=== PATIENT | male | born 1950 | race Caucasian/White ===

== ENCOUNTER → 2023-05-22 06:33 | Outpatient (REF) | payer MEDICARE, OTHER, SELFPAY ==
[2023-05-22 09:25] LABS: Hematocrit 38.3 % (39.0-52.0); Hemoglobin 12.1 g/dL (13.0-18.0); Mean Corp Hgb Conc. 31.6 g/dL (33.0-37.0); Mean Corpuscular Hgb 20.4 pg (27.0-31.0); Mean Corpuscular Volume 64.5 fL (80.0-94.0); Platelet Count 153 10^3/uL (130-400); Red Blood Cell Count 5.94 10^6/uL (4.70-6.10); Red Cell Dist. Width 17.8 % (11.5-14.5); White Blood Cell Count 8.4 10^3/uL (4.8-10.8)
[2023-05-22 09:59] LABS: Blood Urea Nitrogen 20 mg/dl (9-20); Calcium 8.7 mg/dl (8.4-10.2); Carbon Dioxide 27 mmol/L (22-30); Chloride 103 mmol/L (98-107); Glucose 117 mg/dl (70-99); Potassium 4.3 mmol/L (3.5-5.1); Sodium 139 mmol/L (135-145); eGFR > 60.00
== END ==
LOC: SDSPAT 06:33
PROVIDERS: ATTENDING PHYSICIAN Surgery; FAMILY PHYSICIAN Family Medicine
DX: Z01.818 Encounter for other preprocedural examination (principal)
CPT/HCPCS: 36415; 80048; 85027; 93005

== ENCOUNTER 2023-06-23 08:46 | Day surgery (SDC) | payer MEDICARE, OTHER, SELFPAY ==
[2023-05-22 10:59] VITALS: BMI 43.9
[2023-06-23] VITALS (19 sets, daily range): BP systolic 134–179; BP diastolic 48–90; BMI 38.3; BMI 40.9
--- NOTE | 2023-06-23 07:19 | HP.FOC2 ---
Focused History & Physical
Chief Complaint
HPI:
Chief Complaint: Left inguinal hernia
HPI / Indication for Planned Procedure: Patient is a 72-year-old male previously known to myself status post incisional hernia repair in 2019. He has had a left inguinal hernia which had been followed expectantly. Over the past year or so it has
slightly enlarged in size and he now has an awareness of the hernia being present with a fullness in the left inguinal scrotal area. Patient presents today for scheduled operative correction.
Relevant Past Medical History: Other (Bundle branch block, thalassemia, depression, type 2 diabetes, hypertension, PTSD, obesity, Rodríguez's esophagus, hypercholesterolemia, ROHITH)
Relevant Social History: Negative and ETOH (Daily)
Relevant Family History: Negative
Relevant Past Surgical History: Positive for (Laparoscopic right colon resection, open recurrent ventral hernia repair, RAL repair recurrent incisional hernia with mesh+TAR)
Review of Systems
Review of Pertinent Systems: All Systems Negative
Medication
See Medication form for detailed medications: Yes
Medication List (including Herbals & OTC):
alprazolam 1 mg tablet 1 mg PO HSPRN PRN anxiety 10/20/18
sertraline 100 mg tablet 100 mg PO DAILY 10/20/18
simvastatin 20 mg tablet 20 mg PO DAILY 10/20/18
tamsulosin 0.4 mg capsule 0.8 mg PO DAILY 10/20/18
vitamins A,C,P-ckch-ffxdav 4,296 mcg-226 mg-90 mg capsule (PreserVision AREDS) 1 cap PO DAILY 11/02/18
Epidiolex 1 inh inhalation PRN PRN ptsd 06/18/23
Medical Marijuana 1 gum PO PRN PRN ptsd 06/18/23
omeprazole 40 mg capsule,delayed release 40 mg PO DAILY 06/18/23
Medications Reviewed: Yes
Allergies and Reactions
Patient has Allergies: Yes
Noted Allergies and Reactions:
Allergy/AdvReac Type Severity Reaction Status Date / Time
environmental Allergy sneezing, Uncoded 06/18/23 15:31
runny nose
etc.
Pertinent Physical Exam
All Other Systems: Negative
Head/Neck: Normal
Lungs: Normal
Heart: Normal
Abdomen: Other (Left inguinal hernia)
Extremities: Normal
Neurological: Normal
Diagnosis / Assessment
72-year-old male presenting for scheduled operative correction symptomatic left inguinal hernia
Plan / Procedure
Robotic assisted laparoscopic repair left inguinal hernia with mesh
Anesthesia/Sedation to be done by Anesthesia Provider: Yes
[2023-06-23] MEDS: NORMOSOL-R 1000 IV ×2 (08:20→20:04)
[2023-06-23] MEDS: TYLENOL 1000 MG PO (08:33)
--- NOTE | 2023-06-23 09:21 | W.SUR.PREOP ---
Pre-Operative Surgical Note
-
I have examined this patient prior to the performance of the scheduled procedure.
The patient's condition is unchanged from the time of the current History and
Physical and the patient is able to undergo the scheduled procedure.
[2023-06-23 14:36] LABS: Glucose - Point of Care 171 mg/dl (70-99)
--- NOTE | 2023-06-23 14:44 | W.IMMPOSTOP ---
Addendum entered and electronically signed by Carlos Moreno MD 06/25/23 18:21:
#[id number]
Original Note:
Surgical Immed Post Op Note
-
Primary Surgeon: Tiffanie
Assisting Surgeon: Nakia STRAUSS
Pre-op Diagnosis: Left inguinal hernia
Post-op Diagnosis: Incarcerated left inguinal scrotal hernia -indirect
Procedure Performed: Robotic assisted laparoscopic RUBÉN repair incarcerated left inguinal scrotal hernia with mesh; 3D max extra-large regular weight.
Anesthesia Type: GETA +0.25% Marcaine
Specimen / Cultures: None
Estimated Blood Loss: 40 mL
Complications: None immediate
Operative Findings: Large left indirect inguinal hernia. Containing a very large amount of herniated preperitoneal/retroperitoneal fat chronically incarcerated and protruding all the way down to the scrotal testicle area. 4 robotic ports sites
utilized. Careful and tedious dissection to reduce entire contents and expose myopectineal orifice for repair. Direct and femoral space normal. 3D max extra-large regular weight mesh repair secured to Eduarod's ligament with 2-0 Vicryl. Large
portion of herniated contents excised to facilitate mesh placement but not all. Left lateral trocar site 12 mm to allow for mesh placement as well as removal of fatty tissue excised.
[2023-06-23 15:04] LABS: Glucose - Point of Care 162 mg/dl (70-99)
[2023-06-23 17:00] LABS: Glucose - Point of Care 167 mg/dl (70-99)
--- NOTE | 2023-06-23 18:41 | W.PN.SURGUPD ---
Surgical Update
Surgical Update
postoperative pulmonary insuffiency requiring supplemental O2 (2L NC)
h/o ROHITH - no CPAP at home
post surgical admission for care
--- NOTE | 2023-06-23 18:49 | SUR.PHASEI ---
Report given to Amy SUTTON. Pt had dinner sitting up in stretcher. Comfortable, no pain.
[2023-06-23] MEDS: MOTRIN 400 MG PO (20:02)
--- NOTE | 2023-06-23 20:33 | SUR.PHASEI ---
patient asking for pain med for pain 5/10 - medicated with 400mg of Motrin. vss, patient repositions self in bed, patient talking with family on phone, sats 92% or higher with O2 on.
[2023-06-24 03:00] VITALS: BP 131/88
[2023-06-24] MEDS: TYLENOL 650 MG PO (03:11)
--- NOTE | 2023-06-24 03:42 | PTCARENOTE ---
Late entry-patient received from pacu @ 2039 via stretcher on 2l o2 to room 2100, AAOX3, admission assessment completed, pt oriented to room, call fair and POC. patient ambulated off stretcher to [id number]. Abd incisions [employer] no drainage.
[2023-06-24] MEDS: NORMOSOL-R IV ×2 (05:41→05:42)
--- NOTE | 2023-06-24 07:27 | W.PN.GS2 ---
Today's Communication / Plan
-
`
Assessment / Plan
-
Assessment: POD#1 s/p RAL repair incarcerated large left inguinoscrotal hernia with mesh
post operative pulmonary insufficiency likely secondary to obesity and h/o ROHITH (no CPAP at home)
AFVSS
2L NC overnight
Plan: regular diet
ambulate
wean supplemental O2 today; encourage IS use
d/c when off supplemental oxygen - likely today
Subjective Data
-
Date of Service: June 24, 2023
pt seen and examined
mild post op incisional/left inguinal/scortal pains
no nausea
eunice PO
Objective Data
-
Intake and Output
06/23/23 06/24/23 06/25/23
06:59 06:59 06:59
Intake Total 1200 / 1200
Output Total 350 / 350
Balance 850 / 850
Intake:
Oral fluids 800 / 800
IV fluids (Total) 400 / 400
normosol 400 / 400
Output:
Urine, Voided 350 / 350
Vital Signs
Temp Pulse Resp BP Pulse Ox
97.9 F 68 14 131/88 96
06/24/23 03:00 06/24/23 03:00 06/24/23 03:00 06/24/23 03:00 06/24/23 03:00
Physical Exam
-
NAD AAOx3
sleeping but easily awoke,
ABD: soft, obese, ND, mild TTP at incision sites - glue dressing in place
left inguinal/scrotal area without ecchymosis, no recurrence, no swelling
[2023-06-24 07:34] VITALS: BP 145/63
--- NOTE | 2023-06-24 09:26 | PTCARENOTE ---
Oxygen removed this am. pt denies SOB, TANG. pox on RA ranging from 93-95%. pt assisted to order breakfast. will observe.
[2023-06-24] MEDS: HEPARIN 5000 UNITS SC (09:28)
[2023-06-24] MEDS: FLOMAX 0.800000000000000044 MG PO (09:28)
[2023-06-24] MEDS: COLACE 100 MG PO (09:28)
[2023-06-24] MEDS: ZOLOFT 100 MG PO (09:28)
[2023-06-24] MEDS: PROTONIX 40 MG PO (09:28)
--- NOTE | 2023-06-24 10:31 | CM ---
Patient seen at bedside with physician. Patient states that he lives with his and child with Parkinson, Down syndrome that he assists with caregiving for. Patient lives in a 2 story home with no DME other than a chair lift. PCP is Dr. Man
and he uses the [facility] in [place]. CM will continue to follow for discharge planning needs.
Plan; home with no needs anticipated
[2023-06-24 11:35] VITALS: BP 119/56
== END 2023-06-24 12:11 | disposition home or self-care (01) ==
LOC: SDS 08:46
PROVIDERS: ATTENDING PHYSICIAN Surgery
DX: K40.30 Unilateral inguinal hernia, with obstruction, without gangrene, not specified as recurrent (principal)
CPT/HCPCS: 49650; 82962; C1781

== ENCOUNTER 2023-10-17 06:25 | Day surgery (SDC) | payer MEDICARE, OTHER, SELFPAY ==
[2023-10-17 10:38] VITALS: BMI 43.5
[2023-10-17 10:39] VITALS: BMI 43.5
[2023-10-17 10:40] VITALS: BP 178/80
[2023-10-17 12:15] VITALS: BP 123/75
[2023-10-17 12:30] VITALS: BP 163/77
[2023-10-17 12:45] VITALS: BP 158/73
== END 2023-10-17 13:07 | disposition home or self-care (01) ==
LOC: SDS 06:25
PROVIDERS: ATTENDING PHYSICIAN Internal Medicine Gastroenterology
DX: K29.70 Gastritis, unspecified, without bleeding (principal); K22.89 Other specified disease of esophagus; K44.9 Diaphragmatic hernia without obstruction or gangrene; K31.89 Other diseases of stomach and duodenum; Z87.19 Personal history of other diseases of the digestive system; Z98.890 Other specified postprocedural states
CPT/HCPCS: 43239; 88305; 88342

== ENCOUNTER → 2024-04-26 13:18 | Outpatient (REF) | payer MEDICARE, OTHER, SELFPAY | LOC: HWRAD 13:18 | PROVIDERS: ATTENDING PHYSICIAN Physician Assistant Medical | DX: J40 Bronchitis, not specified as acute or chronic (principal) | CPT/HCPCS: 71046 ==

== ENCOUNTER 2024-05-23 04:24 | Inpatient (IN) | payer MEDICARE, OTHER, SELFPAY ==
[2024-05-22 23:45] VITALS: BP 186/71
[2024-05-23] VITALS (9 sets, daily range): BP systolic 146–181; BP diastolic 62–85; BMI 47.8
[2024-05-23 00:17] LABS: % Basophils 0.3 % (0-2); % Eosinophils 0.3 % (0-6); % Immature Granulocytes 0.5 % (0-0.5); % Lymphocytes 16.5 % (20.5-51.1); % Monocytes 7.3 % (1.7-9.3); % Neutrophils 75.1 % (42.2-75.2); Absolute Immature Granulocytes 0.1 10^3/uL (0-0.05); Absolute Lymphocytes 1.6 10^3/uL (1.2-3.4); Absolute Monocytes 0.7 10^3/uL (0.1-0.6); Absolute Neutrophils 7.1 10^3/uL (1.4-6.5); Hematocrit 32.9 % (39.0-52.0); Mean Corp Hgb Conc. 30.4 g/dL (33.0-37.0); Mean Corpuscular Hgb 19.6 pg (27.0-31.0); Mean Corpuscular Volume 64.6 fL (80.0-94.0); Nucleated Red Blood Cells % 0 % (-); Platelet Count 163 10^3/uL (130-400); Red Blood Cell Count 5.09 10^6/uL (4.70-6.10); White Blood Cell Count 9.5 10^3/uL (4.8-10.8)
[2024-05-23 00:22] LABS: ALT (SGPT) 25 U/L (0-50); AST (SGOT) 25 U/L (17-59); Albumin 3.7 g/dl (3.5-5.0); Alkaline Phosphatase 90 U/L (38-126); Blood Urea Nitrogen 14 mg/dl (9-20); Calcium 8.5 mg/dl (8.4-10.2); Carbon Dioxide 22 mmol/L (22-30); Chloride 106 mmol/L (98-107); Glucose 139 mg/dl (70-99); Potassium 4.1 mmol/L (3.5-5.1); Sodium 135 mmol/L (135-145); Total Bilirubin 1.5 mg/dl (0.2-1.3); Total Protein 6.1 g/dl (6.3-8.2); eGFR > 60.00
[2024-05-23 00:34] LABS: NT-proBNP 1380 pg/ml; Troponin I < 0.012 ng/ml
--- NOTE | 2024-05-23 01:31 | ED.GENMED ---
History of Present Illness
General
Chief Complaint: Breathing Problem
Time Seen by Provider: 05/23/24 00:42
History of Present Illness
History of Present Illness:
73-year-old male with history of sleep apnea and hyperlipidemia presenting to the emergency department for shortness of breath. Patient reports since March he has had ongoing issues with breathing. On 2 occasions he was diagnosed with pneumonia
versus bronchitis, started on antibiotic and steroids. He reports he never had full significant improvement. In the past few days felt that his breathing has worsened. Denies associated fever. Denies known sick contacts. He has been coughing
which has been productive. Denies chest pain. Denies abdominal pain or GI symptoms. He reports dyspnea with minimal exertion. Also notes increased lower extremity swelling. Denies known history of heart failure. Reports that he did also
recently have the flu. Denies additional acute medical complaints
Past History
Past History
ED Past Surgical History: None
Phy Exam
Physical Exam
Physical Exam:
General: Well-appearing, no clinical signs of dehydration, nontoxic and in no acute distress
HEENT: protecting airway
Neck: appears supple
CV: Normal heart rate, regular rhythm
Resp: Tachypneic with increased work of breathing. No focal abnormal lung sounds. No wheezing.
Abd: Soft and non-distended, no tenderness to palpation, normal bowel sounds
Extremities: No deformities, bilateral lower extremity swelling with left greater than right.
Neuro: alert, no focal neurologic deficit
: deferred
Rectal: deferred
Psych: Normal affect
Skin: Intact
Scores
Heart Failure Risk
Heart Failure Risk Score: Yes
History of Stroke or TIA: No
History of intubation for respiratory distress: No
Heart rate on ED arrival >/= 110: No
SaO2 <90% on arrival on room air: Yes
HR >/=110 during 3min walk test (or too ill to perform test): Yes
ECG has acute ischemic changes: No
Urea >/=12mmol/L (BUN 33.6mg/dL): No
Serum CO2>/=35mmol/L: No
Troponin I or T elevated to WI Level (0.4mg/dL): No
NT-proBNP >/=5,000ng/L (5,000pg/ml): No
HF Risk Score: 3
Admission Status: HIGH RISK 15.9% Consider SNF treatment or admission to hospital
Course
Orders/Labs/Results
Orders:
Orders
05/22/24 23:49
Electrocardiogram (*1) Urgent
Reason for Study: Other
Other Reason for Exam: Respiratory Distress
EKG- Treatment ONCE
05/22/24 23:59
Complete Blood Count/With Diff Urgent
Comprehensive Metabolic Panel Urgent
NT-proBNP Urgent
Troponin I Urgent
05/23/24 00:52
CT Chest PE Study Urgent
Comment:
Reason For Exam: dyspnea, LE swelling
05/23/24 01:35
COVID-19 Antigen Urgent
Source: Nasal Swab
Influenza A+B Rapid Molecular Urgent
DICK Source: Nasal Swab
Specimen Description:
05/23/24 01:56
Furosemide [Lasix] 40 mg IV NOW STA
05/23/24 03:00
Flush (0.9% Sodium Chloride) [Flush (Nss)] See Dose Instructions IV PER PROTOCOL
05/23/24 04:07
Admit/Transfer Patient As Directed
Co-Sign Provider:
Level of Care: Inpatient admission
Assign to:: Telemetry
Physician / Group: hospitalist
Diagnosis: hypoxia
Reason for Telemetry: Subacute Heart Failure
Date to Stop Telemetry: 05/25/24
Time to Stop Telemetry: 11:00
Reason for Hospitalization: hypoxia
Expected length of stay greater than two midnights?: Yes
ELOS- Estimated Length of Stay in days: 2
I certify the patient meets the requirements for IP care: Yes
PRN Pain Medication Management As Directed
May give lesser potent ordered pain med per pt: Yes
preference::
Protocol:: Medication orders for pain may be administered in a
manner that supports deferring to patient preference
when the pt is:
- Requesting an ordered lesser potent pain medication.
Least to most potent pain medications are defined
as: acetaminophen < NSAID < tramadol < opioids
(morphine, oxycodone, hydromorphone).
- Requesting a lesser dose of the same medication IF
ORDERED.
- Requesting a less intrusive route of administration
if both routes are prescribed by the provider (PO <
IV).
05/23/24 04:08
Code Status As Directed
Resuscitation Status: Full Code
05/25/24 11:00
DC Protocol for Telemetry ONCE
Abnormal Lab Results
05/22/24
23:59
Hgb 10.0 L g/dL
(13.0-18.0)
Hct 32.9 L %
(39.0-52.0)
MCV 64.6 L fL
(80.0-94.0)
MCH 19.6 L pg
(27.0-31.0)
MCHC 30.4 L g/dL
(33.0-37.0)
RDW 19.0 H %
(11.5-14.5)
Abs Immat Gran (auto) 0.1 H 10^3/uL
(0-0.05)
Absolute Neuts (auto) 7.1 H 10^3/uL
(1.4-6.5)
Absolute Monos (auto) 0.7 H 10^3/uL
(0.1-0.6)
Lymphocytes % 16.5 L %
(20.5-51.1)
Glucose 139 H mg/dl
(70-99)
Total Bilirubin 1.5 H mg/dl
(0.2-1.3)
Total Protein 6.1 L g/dl
(6.3-8.2)
05/22/24 23:59
05/22/24 23:59
Vital Signs
Initial and Last Documented VS:
Initial Vital Signs
Temp Pulse Resp BP Pulse Ox
99.3 F 78 30 186/71 93
05/22/24 23:45 05/22/24 23:45 05/22/24 23:45 05/22/24 23:45 05/22/24 23:45
Last Documented Vital Signs
Temp Pulse Resp BP Pulse Ox
99.2 F 69 21 146/70 95
05/23/24 00:57 05/23/24 05:00 05/23/24 05:00 05/23/24 05:00 05/23/24 05:00
MDM/Problems Addressed
MDM/Problems Addressed:
73-year-old male with history of sleep apnea and hyperlipidemia presenting for difficulty breathing. Vital signs on arrival significant for tachypnea, hypertension, low-grade fever.
On exam, patient with increased work of breathing, however relatively benign pulmonary exam. No focal abnormal lung sounds. No wheezing. In the setting of low-grade fever, cough, difficulty breathing, suspect possible infectious pathology. Will
send viral swabs and obtain imaging of the chest. PE is a consideration with lower extremity swelling, worsening dyspnea for the past several months with tachypnea. For this reason we will proceed with CT chest. EKG without significant sign of
ischemia, however does have frequent PVCs. CHF is a consideration, will obtain BNP, again CT chest imaging. Will obtain laboratory analysis and continue to closely monitor.
01:30 - Oxygen dropped to 88%. Patient placed on supplemental O2.
01:55 -CT without obvious evidence of PE. No significant consolidation, effusion, pneumothorax, mention of cardiomegaly. BNP is elevated as well, and in the setting of lower extremity edema and dyspnea suspect possible CHF component. Will
administer Lasix. Plan for admission given hypoxia and increased work of breathing.
*EKG
Interpreted by ED Provider?: Yes
EKG Intrepretation Date: 05/23/24
EKG Intrepretation Time: 01:38
Interpretation: abnormal
Comparison EKG: changes noted
Heart Rate: 90
Rate: normal
Rhythm: sinus
[place]: normal axis
Interval: long QT
QRS Pattern: normal QRS
Ischemia: non-specific ST changes
*Critical Care Note
Total Time (30-74mins, 75-104mins- exclusive of procedures): Not Applicable
ED Attending Note
-
Portions of this chart may have been created with voice recognition software.� Occasional wrong word or��sound alike� substitutions may have occurred due to the inherent limitations of voice recognition software.
Discharge Plan
Departure
Patient Disposition: Admit
Date of Disposition: 05/23/24
Time of Disposition: 02:00
Presentation/result/management discussed w/ accepting MD/DO: Hospitalist
Patient with high blood pressure during this ER visit?: Yes
Discharge Problem:
Breath shortness, Congestive heart failure
Interventions
Interventions:
*Risk Screen - Suicide Last Done: 05/22/24 23:45
*General Assessment Last Done: 05/22/24 23:45
*Neglect/Abuse Screening Last Done: 05/22/24 23:45
ED- Fall Risk Assessment Last Done: 05/23/24 01:00
*ED COVID-19 Vaccine History Last Done: 05/23/24 01:42
*Nursing Disposition Last Done: 05/23/24 06:32
ED- Cardiac Assessment Last Done: 05/23/24 01:00
ED- Pulmonary Assessment Last Done: 05/23/24 01:00
Discharge Date and Time
Discharge Date/Time: 05/23/24 06:00
[2024-05-23 01:58] LABS: COVID-19 Antigen Negative (Negative)
[2024-05-23] MEDS: LASIX 40 MG IV (02:48)
--- NOTE | 2024-05-23 03:52 | HPS.HSE ---
Family Physician
-
Family Physician: Kaveh Root
Chief Complaint
-
Shortness of breath
History of Present Illness
This is 73-year-old who has a past medical history significant for hypertension, cmb-meupzal-rdodduugl diabetes, thalassemia, sleep apnea not on CPAP, morbid obesity, history of Rodríguez's esophagus presenting to the emergency department with
worsening shortness of breath.
Patient reports a longstanding history of shortness of breath and dyspnea on exertion for many many years (over 25 years) with extensive prior workup that was negative. He says states symptoms intermittent comes and then resolves on his own. He
reports his had cardiac evaluation as well as pulmonary evaluation in the past without any specific diagnosis. He denies any history of smoking, diagnosis of asthma or COPD. He denies any diagnosis of interstitial lung disease. Despite these
episodes of dyspnea on exertion is been able to perform his usual activities. He reports that he was able to walk several miles when he is asymptomatic.
Over the last few months patient reports that his had increased weight gain and a more sedentary lifestyle.
Since March he has been having episodes of bronchitis requiring no antibiotics. He tells me that about a month ago started having another episode of bronchitis and he was treated with antibiotics several times. He was initially treated for
bronchitis with steroid taper as well as antibiotics. Then he was told that he had a pneumonia and was started on a Z-Ron. After completing the Z-Ron symptoms appear to have improved but then his symptoms worsened again and he was started on
cefuroxime. He is currently on a 10-day course of cefuroxime. He reports cough that is productive of whitish phlegm most of the time. Sometimes a runny sometimes with thick. He denies having fevers or chills. He denies any audible wheezes.
Patient reports a chronic left lower extremity swelling. Reports injury to the left knee several years ago with persistent swelling. More recently he has developed right lower extremity swelling. He also reports about a 20 pound weight gain in 1
month. He denies orthopnea or PND. He has been having more trouble sleeping with sleepwalking and intermittent falls. Denies snoring, spouse denies seeing any apneic episode during his sleep. Patient reports prior workup for CHF was negative.
He denies having any chest pain. He specifically notes that his shortness of breath was worse when he bends down to slat pickler any object.
In the emergency department he was hypertensive to 170/60 with a pulse of 87 and regular. He was satting 93% to 95% on 2 L. Temperature was 99. ECG showed a normal sinus rhythm heart rate of 90 with frequent PVCs and incomplete right bundle which
is unchanged from prior. His troponin was negative at 0.012. BNP was elevated at 1380. He had a CT PE study which was negative for any central PE. He had bilateral lower lobe atelectasis without consolidation, pleural effusions or pneumothorax.
Medical History
Past Medical History
Past Medical History: Reports GERD (Rodríguez's esophagus), HTN, Psychiatric (PTSD) and Other (Sleep apnea not on CPAP)
Past Surgical History: Reports Bowel Resection and Other (Ventral hernia repair)
Social History
Tobacco: Non-smoker
Alcohol: None
Drug: None
Personal:
Living: With Family
Employment: Retired
Family History
Family History: Not pertinent
Allergies / Home Medications
Allergies reflects when Allergies were last updated in [employer].
Home Medications with original date entered in [employer]
Allergy/Medication List:
Allergies
Allergy/AdvReac Type Severity Reaction Status Date / Time
pollen extracts Allergy sneezing, Verified 06/23/23 15:38
runny nose
etc.-HAYFEVER
Home Medications
alprazolam 1 mg tablet 0.5 mg PO HSPRN PRN anxiety 10/20/18
sertraline 100 mg tablet 100 mg PO DAILY 10/20/18
simvastatin 20 mg tablet 20 mg PO DAILY 10/20/18
tamsulosin 0.4 mg capsule 0.8 mg PO DAILY 10/20/18
vitamins A,C,H-nwjf-cyqvpe 4,296 mcg-226 mg-90 mg capsule (PreserVision AREDS) 1 cap PO DAILY 11/02/18
Medical Marijuana 1 gum PO PRN PRN ptsd 06/18/23
omeprazole 40 mg capsule,delayed release 40 mg PO DAILY 06/18/23
acetaminophen 500 mg tablet (Tylenol Extra Strength) 1,000 mg (2 x 500 mg) PO Q6HPRN PRN mild pain #1 tab 06/23/23
albuterol 90 mcg/actuation aerosol inhaler 90 mcg inhalation Q4HPRN PRN SOB 06/23/23
ibuprofen 200 mg tablet 400 - 600 mg (2 - 3 x 200 mg) PO Q6HPRN PRN moderate pain #1 tab 06/23/23
polyethylene glycol 3350 17 gram/dose oral powder (Miralax) 4 g PO DAILY PRN Constipation #119 grams 06/23/23
tramadol 50 mg tablet 50 mg PO Q6HPRN PRN severe pain/breakthrough pain #10 tabs 06/23/23
Review of Systems
-
History Source: Patient
Constitutional: Reports No Symptoms
EENT: Reports No Symptoms
Respiratory: Reports Trouble Breathing
Cardiac: Reports No Symptoms
Abdomen/GI: Reports No Symptoms
: Reports No Symptoms
Musculoskeletal: Reports Edema
Skin: Reports No Symptoms
Neurological: Reports No Symptoms
Endocrine: Reports No Symptoms
Hematologic/Lymphatic: Reports No Symptoms
Psych: Reports No Symptoms
Physical Exam
Vital Signs
Vital Signs
Temp Pulse Resp BP Pulse Ox
99.2 F 87 24 170/62 93
05/23/24 00:57 05/23/24 02:48 05/23/24 01:00 05/23/24 02:48 05/23/24 02:23
Physical Exam
General: Well Developed, Well Nourished and Respiratory Distress
HEENT: NormoCephalic, Anicteric, Moist mucous membranes and Atraumatic
Respiratory: Clear and Crackles
Cardiac: S1/S2 and Regular Rhythm
Breast: Deferred by me
GI: Soft, Normal Bowel Sounds and Distended
Rectal: Deferred by Provider
Genito-urinary: Deferred by me
Musculoskeletal: No Clubbing, No Cyanosis, Edema, Left Lower Extremity and Edema, Right Lower Extremity
Skin: Warm
Neuro: Nonfocal/grossly intact
Hematologic/Lymphatic: No Lymphadenopathy
Psych: Calm
Laboratory Results
-
05/22/24 23:
05/22/24
Laboratory Results
Total Bilirubin 1.5 mg/dl (0.2-1.3) H 05/22/24
AST 25 U/L (17-59) 05/22/24
ALT 25 U/L (0-50) 05/22/24
Alkaline Phosphatase 90 U/L (38-126) 05/22/24
Troponin I < 0.012 ng/ml 05/22/24:
Data Reviewed
-
CT Scan: Report Reviewed by me
Medical Tests (Nuc Med, Echo, EKG etc): Image Personally Visualized and interpreted
Lab Data: Labs Reviewed by me
Old Records: Reviewed
Impression/Plan
-
IMPRESSION:
73-year-old coming with worsening shortness of breath which appears to be subacute over the last 1 to 2 months. Apparently has a combination of upper respiratory symptoms for which she was treated for influenza with Tamiflu and then 3 rounds of
antibiotics and a prednisone taper without much improvement, reports 20 pound weight gain in 1 month, dyspnea on exertion, bilateral lower extremity edema. Denies orthopnea or PND. Generally sleeps upright or avoid sleeping at night. Here in the
emergency department troponin is negative but BNP is elevated at 1380. CT scan is negative for pulmonary embolus. CBC is unremarkable. Electrolytes BUN/creatinine were also unremarkable. The overall picture, given the weight gain persistent
dyspnea on exertion and shortness of breath and lower extremity edema with elevated BNP is consistent with development of congestive heart failure likely secondary to obesity, hypertension and uncontrolled sleep apnea. Troponin is negative. He is
not wheezing and shows no signs of an acute infection at this time.
PLAN:
1. Suspected New onset CHF - etiology unclear but less likley ischemic, cannot rule out pulm HTN, valvular disease
- admit to telemetry
- will continue lasix 40mg iv bid for now
- echo in am, tsh,
- check procalcitonin to rule out infection
- cardiovascular panel and a1c
- daily weights, i/os
- may need more invasive testing, will consult cardiology (has seen Dr. Zeng in the past)
- check vbg and ambulatory stats
- patient would need weight loss and cardiovascular/pulm rehab
2. Bronchitis
- complete course of cefuroxime
- nebs prn
3. HTN
- continue lisinopril
- additional meds pending echo and diuresis
4. BPH
- tamsulosin
- bladder scan prn
DVT PPX - lovenox sq
Code status - Full Code
--- NOTE | 2024-05-23 06:07 | EDRN ---
At 05:45 the patient took off his monitor and oxygen and ambulated to the bathroom. The patient then stated 'I am leaving. I am not staying here. I can get treated at home.' Eris Maguire notified and went immediately in to discuss the decision
with the patient. The patient refused to stay and did sign out AMA. The patient refused to have his pulse ox re-checked without oxygen. The patient is aware that he was on 3L N/C due to hypoxia. The patients stated 'He isn't staying. He made up
his mind. We are leaving.' Dr. Menard did discuss the possible outcome of signing out of the hospital. The patient was assisted with dressing by his and the patient was taken to the ED waiting room via W/C. The patients stated 'we are
calling for a ride.'
--- NOTE | 2024-05-23 06:56 | W.DCSUMMARY ---
Discharge Summary
Discharge Data
Date of Admission: 05/23/24
Date of Discharge: 05/23/24
Total time spent discharging patient (in min): 10
-
Pending Results: No
Hospital Course
Patient presenting with worsening dyspnea on exertion and shortness of breath over the last 1 month without improvement found to have elevated BP [employer], with gain bilateral lower extremity edema consistent with congestive heart failure. Patient
started on IV diuresis. However he could not tolerate protocol for measuring his weight, urine output and telemetry monitoring and decided to leave the hospital AGAINST MEDICAL ADVICE. He understood the risks which included severe dyspnea and
ultimately cardiac arrest. He was told to return to the hospital if his symptoms do not improve. He did not request any medications or follow-ups.
Discharge Plan
-
Patient Disposition: Against Medical Advice
Referrals:
Kaveh Root MD [Family Provider] -
Prescriptions:
No Action
alprazolam 1 MG tablet
0.5 mg PO HSPRN PRN (Reason: anxiety)
sertraline 100 MG tablet
100 mg PO DAILY
tamsulosin 0.4 MG capsule
0.8 mg PO DAILY
simvastatin 20 MG tablet
20 mg PO DAILY
PreserVision AREDS 1 CAP capsule
1 cap PO DAILY
omeprazole 40 mg Capsule,Delayed Release(Dr/Ec)
40 mg PO DAILY
Medical Marijuana
1 gum PO PRN PRN (Reason: ptsd)
albuterol 90 mcg/actuation Aerosol
90 mcg INHALATION Q4HPRN PRN (Reason: SOB)
tramadol 50 mg tablet
50 mg PO Q6HPRN PRN (Reason: severe pain/breakthrough pain) Qty: 10 0RF
acetaminophen [Tylenol Extra Strength] 500 mg tablet
1,000 mg PO Q6HPRN PRN (Reason: mild pain) Qty: 1 0RF
ibuprofen 200 mg tablet
400 - 600 mg PO Q6HPRN PRN (Reason: moderate pain) Qty: 1 0RF
polyethylene glycol 3350 [Miralax] 17 gram/dose powder
4 g PO DAILY PRN (Reason: Constipation) Qty: 119 0RF
Rx Instructions:
start a laxative such as MIRALAX on day 2 after surgery if no bowel movement yet as long as no nausea/vomiting and passing gas
Discharge Date and Time
Print Language: RWANDAN
== END 2024-05-23 08:00 | disposition left against medical advice (07) | DRG 292 ==
LOC: ED 04:24
PROVIDERS: Student in an Organized Health Care Education/Training Program; ADMITTING PHYSICIAN Internal Medicine; ATTENDING PHYSICIAN Family Medicine; EMERGENCY PHYSICIAN Student in an Organized Health Care Education/Training Program; FAMILY PHYSICIAN Family Medicine
DX: I11.0 Hypertensive heart disease with heart failure (principal); Z68.42 Body mass index [BMI] 45.0-49.9, adult; I50.9 Heart failure, unspecified; D56.9 Thalassemia, unspecified; E11.9 Type 2 diabetes mellitus without complications; F43.10 Post-traumatic stress disorder, unspecified; G47.30 Sleep apnea, unspecified; E66.01 Morbid (severe) obesity due to excess calories; K22.70 Barrett's esophagus without dysplasia; J40 Bronchitis, not specified as acute or chronic; F51.3 Sleepwalking [somnambulism]; I49.3 Ventricular premature depolarization; E78.5 Hyperlipidemia, unspecified; K21.9 Gastro-esophageal reflux disease without esophagitis; N40.0 Benign prostatic hyperplasia without lower urinary tract symptoms; Z11.52 Encounter for screening for COVID-19; Z53.29 Procedure and treatment not carried out because of patient's decision for other reasons
CPT/HCPCS: 71275; 80053; 83880; 84484; 85025; 87502; 87811; 93005; 96374; 99285; Q9967

== ENCOUNTER → 2024-06-08 10:53 | Outpatient (REF) | payer MEDICARE, OTHER, SELFPAY | LOC: HWRCS 10:53 | PROVIDERS: ATTENDING PHYSICIAN Family Medicine | DX: I50.9 Heart failure, unspecified (principal) | CPT/HCPCS: 93306 ==

== ENCOUNTER → 2024-06-30 16:38 | Outpatient (REF) | payer MEDICARE, OTHER, SELFPAY ==
[2024-06-30 17:29] LABS: % Basophils 0.6 % (0-2); % Eosinophils 0.3 % (0-6); % Immature Granulocytes 0.3 % (0-0.5); % Monocytes 7.4 % (1.7-9.3); % Neutrophils 68.4 % (42.2-75.2); Absolute Lymphocytes 1.6 10^3/uL (1.2-3.4); Absolute Monocytes 0.5 10^3/uL (0.1-0.6); Absolute Neutrophils 4.9 10^3/uL (1.4-6.5); Hematocrit 37.1 % (39.0-52.0); Hemoglobin 11.3 g/dL (13.0-18.0); Mean Corp Hgb Conc. 30.5 g/dL (33.0-37.0); Mean Corpuscular Hgb 19.7 pg (27.0-31.0); Mean Corpuscular Volume 64.7 fL (80.0-94.0); Nucleated Red Blood Cells % 0 % (-); Platelet Count 151 10^3/uL (130-400); Red Blood Cell Count 5.73 10^6/uL (4.70-6.10); Red Cell Dist. Width 18.6 % (11.5-14.5); White Blood Cell Count 7.1 10^3/uL (4.8-10.8)
[2024-06-30 17:38] LABS: ALT (SGPT) 19 U/L (0-50); AST (SGOT) 22 U/L (17-59); Albumin 4.3 g/dl (3.5-5.0); Alkaline Phosphatase 82 U/L (38-126); Blood Urea Nitrogen 24 mg/dl (9-20); Calcium 9.1 mg/dl (8.4-10.2); Carbon Dioxide 27 mmol/L (22-30); Chloride 104 mmol/L (98-107); Glucose 91 mg/dl (70-99); HDL Cholesterol 33 mg/dl; LDL Cholesterol, Calculated 75 mg/dl; Potassium 4.5 mmol/L (3.5-5.1); Sodium 139 mmol/L (135-145); Total Bilirubin 1.1 mg/dl (0.2-1.3); Total Cholesterol 129 mg/dl (50-199); Total Protein 6.6 g/dl (6.3-8.2); Triglyceride 107 mg/dl (10-149); Very Low Density Lipoprotein 21 mg/dl (0-30); eGFR > 60.00
[2024-07-01 08:44] LABS: Glycohemoglobin (HgbA1c) 6.3 % (4.0-5.6)
== END ==
LOC: CLAB 16:38
PROVIDERS: ATTENDING PHYSICIAN Family Medicine
DX: E11.65 Type 2 diabetes mellitus with hyperglycemia (principal); D56.9 Thalassemia, unspecified
CPT/HCPCS: 80053; 80061; 83036; 85025

== ENCOUNTER → 2024-11-01 08:14 | Outpatient (REF) | payer MEDICARE, OTHER, SELFPAY | LOC: HWRAD 08:14 | PROVIDERS: ATTENDING PHYSICIAN Family Medicine | DX: E11.65 Type 2 diabetes mellitus with hyperglycemia (principal); Z68.31 Body mass index [BMI] 31.0-31.9, adult; R63.4 Abnormal weight loss; R10.11 Right upper quadrant pain | CPT/HCPCS: 74150 ==